=== PATIENT | male | born 1980 | race Caucasian/White ===

== ENCOUNTER 2021-04-11 06:57 | Outpatient (REF) | payer BC, SELFPAY ==
[2021-04-11 11:24] LABS: Hematocrit 49.9 % (42.0-52.0); Hemoglobin 16.2 g/dl (14.0-18.0); Mean Corpuscular HGB Conc 32.5 g/dl (31.0-36.0); Mean Corpuscular Volume 86.3 fL (80.0-98.0); Mean Platelet Volume 10.6 fL (9.4-12.4); Platelet Count 192 X10*3/uL (160-400); Red Blood Count 5.78 X10*6/uL (4.60-5.80); Red Cell Distribution Width 12.6 % (11.0-16.0); White Blood Count 4.8 X10*3/uL (4.8-10.8)
[2021-04-11 11:42] LABS: Appearance Urine CLEAR; Color Urine YELLOW; Glucose Urine UA NEG (NEG); Leukocyte Esterase Urine NEG (NEG); Nitrite Urine NEG (NEG); PH 7.5 (5.0-8.0); Specific Gravity - Urine 1.015 (1.005-1.025); Urine Blood NEG (NEG); Urine Ketones NEG (NEG); Urine Protein NEG (NEG-TRACE)
[2021-04-11 12:01] LABS: Alanine Aminotransferase 29 U/L (0-40); Albumin Level 4.3 g/dL (3.5-5.0); Alkaline Phosphatase 58 U/L (39-117); Anion Gap 11 (12-20); Aspartate Amino Transferase 22 U/L (5-37); Bilirubin Total 1.7 mg/dL (0.0-1.0); Blood Urea Nitrogen 14 mg/dL (9-16); Calcium 9.4 mg/dL (8.4-10.2); Carbon Dioxide 27 mmol/L (22-29); Chloride 106 mmol/L (96-108); Cholesterol 190 mg/dL; Estimated Glomerular Filt Rate > 60; Glucose Fasting 106 mg/dL (60-99); HDL Cholesterol 42 mg/dL; LDL Cholesterol Calculated 135 mg/dl; Potassium 4.4 mmol/L (3.3-5.1); Sodium 140 mmol/L (135-145); TSH reflex Free T4 3.19 uIU/mL (0.32-4.0); Total Protein 7.2 g/dL (6.5-8.0); Triglycerides 68 mg/dL
[2021-04-11 12:21] LABS: RBC Urine 0 /HPF (0); WBC Urine 0 /HPF (0-4)
== END 2021-04-11 06:58 | disposition home or self-care (01) ==
LOC: HO.HMGCLDS 06:57
PROVIDERS: Visit Provider Internal Medicine
DX: Z00.00 Encounter for general adult medical examination without abnormal findings (principal); I10 Essential (primary) hypertension; I48.91 Unspecified atrial fibrillation
CPT/HCPCS: 36415; 80053; 80061; 81001; 84443; 85027

== ENCOUNTER → 2021-07-17 14:43 | Outpatient (REF) | payer BC, SELFPAY ==
--- NOTE | 2021-07-17 14:53 | HM_ITS ---
* Total monitoring time 3 days and 10 hours. * Underlying rhythm is sinus. Average rate 70/Min. Range 43 to 144/Min. * Rare supraventricular and ventricular ectopy with minimal burden. * No patient events. MTDD
--- NOTE | 2021-07-17 14:53 | CA_ITS ---
Transthoracic Echocardiogram Patient (Last, First, Middle): Taiwo Olvera, Gender: Male Date of : 1980 Age: 41 Procedure Date: 07/17/2021 Procedure Type: Transthoracic Echocardiogram Location: OP Height: 182.88 cm Weight: 89.36 kg BSA: 2.12 m2 Heart Rate: bpm BP: 110 / 80 mmHg Bulk Delivery Driver: TO Referring MD: Albertina Petit MD Symptoms: I10 - Essential (primary) hypertension Study Quality: Good ECG Rhythm: Sinus Conclusions: - The left ventricular systolic function is normal. The calculated ejection fraction is 59% by biplane method. - No obvious valvular pathology seen on this study. Findings Left Ventricle Normal left ventricular cavity size. There is normal left ventricular wall thickness. The left ventricular systolic function is normal. The calculated ejection fraction is 59% by biplane method. There is no evidence of regional wall motion abnormalities. Diastolic function is normal for age. Right Ventricle Normal right ventricular cavity size and systolic function. Atria Both atria are normal in size. Aortic Valve There is a normal trileaflet aortic valve. There is no aortic valve stenosis. There is no aortic valve regurgitation. Mitral Valve The mitral valve appears normal. There is trace mitral valve regurgitation. There is no mitral valve stenosis. Pulmonic Valve The pulmonic valve is likely normal. Tricuspid Valve There is trace tricuspid valve regurgitation. The pulmonary artery systolic pressure is normal. Great Vessels The aortic annulus, sinuses of valsalva, and asc aorta are normal in size. Venous The inferior vena cava is normal in size and collapses greater than 50% with inspiration. Pericardium/Pleural There is no evidence of pericardial effusion. Prior Study Comparison No prior study available for comparison. Recommendations, Care & Conclusions No obvious valvular pathology seen on this study. Measurements 2D Linear Measurements IVSd: 0.91 0.6-0.9/0.6-1.0 cm LVIDd: 5.06 3.9-5.3/4.2-5.9 cm LVIDd Index: 2.39 2.4-3.2/2.2-3.1 cm/m2 LVIDs: 3.24 2.0-3.6 cm LVPWd: 1.00 0.7-1.1 cm LA Diam: 4.20 2.7-3.8/3.0-4.0 cm LAIDs Index: 1.98 1.5-2.3 cm/m2 LV Mass: 216.96 67-162/88-224 g LV Mass Index: 102.34 43-95/49-115 g/m2 LVOT Diam: 2.10 3.0+(-)1.3 cm 2D Systolic Function EF 4C: 60.80 >55% EF 2C: 55.50 >55% EF BiP: 59.30 >55% Mitral Valve MV Pk E: 0.68 MV PK A: 0.46 MV Decel Time: 180.00 E/A: 1.50 E'Lateral: 16.80 E'Medial: 10.70 E/E' Med: 6.40 E/E' Lat: 4.10 PHT: 53.00 MVA PHT: 4.15 Decel [place]: 3.79 Aortic Valve AoV Pk Manuel: 1.62 AoV Mn Manuel: 1.14 AoV VTI: 0.34 AoV Pk Grad: 10.00 Aov Mn Grad: 6.00 WAYLON Cont.VTI: 2.08 LVOT LVOT Pk Manuel: 1.02 LVOT Mn Manuel: 0.68 LVOT VTI: 0.20 LVOT Pk Grad: 4.00 LVOT Mn Grad: 2.00 LVOT Diam: 2.10 LVOT Area: 3.46 Diastolic Function MV Pk E: 0.68 MV Pk A: 0.46 E/A: 1.50 E'Medial: 10.70 E/E' Med: 6.40 E' Laterial: 16.80 E/E' Lat: 4.10 Right Ventricle TAPSE (mm): 24.30 TVS' Manuel: 11.70 Tricuspid Valve TR Pk Manuel: 2.05 TR Pk Grad: 17.00 RA Press: 3.00 RVSP: 20.00 Great Vessels Aorta Sinus of Valsalva: 3.25 2.0-3.[address] [place]: 2.66 1.7-3.4 cm Ao Asc: 3.20 2.1-3.4 cm Ao Arch: 2.90 Updated in Other Vendor System with Status of Final Anthony Minaya MD electronically signed on 07/19/2021 10:35:26 AM with status of Final
== END ==
LOC: HO.CARD 14:43
PROVIDERS: PCP Internal Medicine; Visit Provider Internal Medicine
DX: I10 Essential (primary) hypertension (principal); I48.91 Unspecified atrial fibrillation
CPT/HCPCS: 93242; 93306

== ENCOUNTER 2021-12-08 | Outpatient (REF) | payer OTHER, SELFPAY | END 2021-12-08 00:01 | disposition home or self-care (01) | LOC: HO.LNP | PROVIDERS: Visit Provider Internal Medicine | DX: R10.9 Unspecified abdominal pain (principal); K21.9 Gastro-esophageal reflux disease without esophagitis | CPT/HCPCS: 87338 ==

== ENCOUNTER 2021-12-09 14:53 | Outpatient (REF) | payer OTHER, SELFPAY ==
[2021-12-09 16:25] LABS: MANUAL DIFF FLAG NO
[2021-12-09 16:35] LABS: Basophils Percent Auto 0.3 % (0-2); Eosinophils Percent Auto 0.3 % (0-4); Hematocrit 43.8 % (42.0-52.0); Hemoglobin 14.8 g/dl (14.0-18.0); Imm Gran Abs Auto 0.01 X10*3/uL (0.00-0.03); Imm Gran Pct Auto 0.3 % (0.0-0.4); Lymphocytes Absolute Auto 1.8 X10*3/uL (1.2-4.9); Lymphocytes Percent Auto 46.2 % (20-40); Mean Corpuscular HGB Conc 33.8 g/dl (31.0-36.0); Mean Corpuscular Hemoglobin 28.2 pg (27.0-33.0); Mean Corpuscular Volume 83.4 fL (80.0-98.0); Mean Platelet Volume 10.6 fL (9.4-12.4); Monocytes Absolute Auto 0.4 X10*3/uL (0.1-1.2); Monocytes Percent Auto 9.5 % (2-11); Neutrophils Absolute Auto 1.7 x10*3/uL (2.0-8.3); Neutrophils Percent Auto 43.4 % (45-73); Platelet Count 121 X10*3/uL (160-400); Red Blood Count 5.25 X10*6/uL (4.60-5.80); Red Cell Distribution Width 12.4 % (11.0-16.0); White Blood Count 3.9 X10*3/uL (4.8-10.8)
[2021-12-09 16:50] LABS: Alanine Aminotransferase 47 U/L (0-40); Albumin Level 4.4 g/dL (3.5-5.0); Alkaline Phosphatase 58 U/L (39-117); Anion Gap 15 (12-20); Aspartate Amino Transferase 32 U/L (5-37); Bilirubin Total 0.7 mg/dL (0.0-1.0); Blood Urea Nitrogen 19 mg/dL (9-16); Calcium 8.8 mg/dL (8.4-10.2); Carbon Dioxide 25 mmol/L (22-29); Chloride 106 mmol/L (96-108); Estimated Glomerular Filt Rate > 60; Glucose Random 95 mg/dL (60-115); Sodium 142 mmol/L (135-145); Total Protein 7.2 g/dL (6.5-8.0)
[2021-12-09 17:13] LABS: TSH reflex Free T4 2.01 uIU/mL (0.32-4.0)
== END 2021-12-09 14:54 | disposition home or self-care (01) ==
LOC: HO.HMGCLDS 14:53
PROVIDERS: PCP Internal Medicine; Visit Provider Internal Medicine
DX: I10 Essential (primary) hypertension (principal); R10.9 Unspecified abdominal pain; K62.1 Rectal polyp
CPT/HCPCS: 36415; 80053; 84443; 85025

== ENCOUNTER 2021-12-10 06:51 | Outpatient (REF) | payer OTHER, SELFPAY | END 2021-12-10 06:52 | disposition home or self-care (01) | LOC: HO.HMGCLDS 06:51 | PROVIDERS: PCP Internal Medicine; Visit Provider Internal Medicine | DX: Z13.89 Encounter for screening for other disorder (principal) ==

== ENCOUNTER 2022-01-01 08:54 | Outpatient (REF) | payer OTHER, SELFPAY ==
--- NOTE | ~2022-01-01 | US_ITS ---
EXAMINATION: US ABDOMEN COMPLETE CLINICAL INFORMATION: Unspecified abdominal pain. COMPARISON: None TECHNIQUE: Real-time imaging of the abdominal viscera. FINDINGS: PANCREAS: Normal. ABDOMINAL AORTA: The proximal, mid, and distal segments are normal in caliber. INFERIOR VENA CAVA: Visualized portions are normal. LIVER: Normal. The liver is normal in size. The liver contour is normal. Parenchymal echogenicity is normal. No focal hepatic lesion. There is no intrahepatic biliary duct dilatation seen. GALLBLADDER: Gallbladder wall thickness is 0.27 cm. The gallbladder is physiologically distended. Multiple mobile gallstones are present. Borderline gallbladder wall thickening without pericholecystic fluid. COMMON BILE DUCT: Normal in caliber measuring 0.3 cm in diameter. RIGHT KIDNEY: Normal. No hydronephrosis. No renal calculi or focal parenchymal lesions. The kidney measures 11.9 cm in maximum dimension. LEFT KIDNEY: Normal. No hydronephrosis. No renal calculi or focal parenchymal lesions. The kidney measures 10.6 cm in maximum dimension. SPLEEN: Normal. The spleen measures 12.1 cm in maximum dimension. FREE FLUID: None. US/US abdomen complete IMPRESSION: 1. Cholelithiasis with borderline wall thickening measuring 0.27 cm. 2. Rest of the abdominal ultrasound is unremarkable.
== END 2022-01-01 08:55 | disposition home or self-care (01) ==
LOC: HO.HMGCX 08:54
PROVIDERS: PCP Internal Medicine; Visit Provider Internal Medicine
DX: I10 Essential (primary) hypertension (principal); R10.9 Unspecified abdominal pain; K62.1 Rectal polyp
CPT/HCPCS: 76700

== ENCOUNTER 2022-01-21 06:08 | Outpatient (REF) | payer OTHER, SELFPAY ==
[2022-01-21 11:16] LABS: MANUAL DIFF FLAG NO
[2022-01-21 11:32] LABS: Basophils Percent Auto 0.6 % (0-2); Eosinophils Absolute Auto 0.1 X10*3/uL (0.0-0.4); Eosinophils Percent Auto 2.5 % (0-4); Hematocrit 49.7 % (42.0-52.0); Hemoglobin 16.5 g/dl (14.0-18.0); Imm Gran Abs Auto 0.01 X10*3/uL (0.00-0.03); Imm Gran Pct Auto 0.2 % (0.0-0.4); Lymphocytes Absolute Auto 2.8 X10*3/uL (1.2-4.9); Lymphocytes Percent Auto 53.8 % (20-40); Mean Corpuscular HGB Conc 33.2 g/dl (31.0-36.0); Mean Corpuscular Hemoglobin 28.6 pg (27.0-33.0); Mean Corpuscular Volume 86.3 fL (80.0-98.0); Mean Platelet Volume 10.5 fL (9.4-12.4); Monocytes Absolute Auto 0.4 X10*3/uL (0.1-1.2); Monocytes Percent Auto 6.8 % (2-11); Neutrophils Absolute Auto 1.9 x10*3/uL (2.0-8.3); Neutrophils Percent Auto 36.1 % (45-73); Platelet Count 183 X10*3/uL (160-400); Red Blood Count 5.76 X10*6/uL (4.60-5.80); Red Cell Distribution Width 12.7 % (11.0-16.0); White Blood Count 5.2 X10*3/uL (4.8-10.8)
[2022-01-21 11:44] LABS: Alanine Aminotransferase 83 U/L (0-40); Albumin Level 4.6 g/dL (3.5-5.0); Alkaline Phosphatase 73 U/L (39-117); Aspartate Amino Transferase 42 U/L (5-37); Bilirubin Direct 0.4 mg/dL (0.0-0.5); Bilirubin Total 1.5 mg/dL (0.0-1.0); Total Protein 7.6 g/dL (6.5-8.0)
== END 2022-01-21 06:09 | disposition home or self-care (01) ==
LOC: HO.HMGCLDS 06:08
PROVIDERS: PCP Internal Medicine; Visit Provider Internal Medicine
DX: D69.6 Thrombocytopenia, unspecified (principal)
CPT/HCPCS: 36415; 80076; 85025

== ENCOUNTER 2022-04-07 06:06 | Outpatient (REF) | payer OTHER, SELFPAY ==
[2022-04-07 11:27] LABS: MANUAL DIFF FLAG NO
[2022-04-07 11:35] LABS: Basophils Percent Auto 0.4 % (0-2); Eosinophils Absolute Auto 0.1 X10*3/uL (0.0-0.4); Eosinophils Percent Auto 1.9 % (0-4); Hematocrit 49.1 % (42.0-52.0); Hemoglobin 16.2 g/dl (14.0-18.0); Imm Gran Abs Auto 0.01 X10*3/uL (0.00-0.03); Imm Gran Pct Auto 0.2 % (0.0-0.4); Lymphocytes Absolute Auto 2.3 X10*3/uL (1.2-4.9); Lymphocytes Percent Auto 45.6 % (20-40); Mean Corpuscular Hemoglobin 28.5 pg (27.0-33.0); Mean Corpuscular Volume 86.4 fL (80.0-98.0); Mean Platelet Volume 10.6 fL (9.4-12.4); Monocytes Absolute Auto 0.3 X10*3/uL (0.1-1.2); Monocytes Percent Auto 6.4 % (2-11); Neutrophils Absolute Auto 2.3 x10*3/uL (2.0-8.3); Neutrophils Percent Auto 45.5 % (45-73); Platelet Count 171 X10*3/uL (160-400); Red Blood Count 5.68 X10*6/uL (4.60-5.80); Red Cell Distribution Width 12.6 % (11.0-16.0); White Blood Count 5.1 X10*3/uL (4.8-10.8)
[2022-04-07 12:13] LABS: Alanine Aminotransferase 31 U/L (0-40); Albumin Level 4.3 g/dL (3.5-5.0); Alkaline Phosphatase 59 U/L (39-117); Anion Gap 16 (12-20); Aspartate Amino Transferase 23 U/L (5-37); Bilirubin Total 1.4 mg/dL (0.0-1.0); Blood Urea Nitrogen 15 mg/dL (9-16); Calcium 9.4 mg/dL (8.4-10.2); Carbon Dioxide 24 mmol/L (22-29); Chloride 106 mmol/L (96-108); Cholesterol 199 mg/dL; Estimated Glomerular Filt Rate > 60; Glucose Fasting 103 mg/dL (60-99); HDL Cholesterol 48 mg/dL; LDL Cholesterol Calculated 124 mg/dl; Potassium 4.3 mmol/L (3.3-5.1); Sodium 142 mmol/L (135-145); Total Protein 7.1 g/dL (6.5-8.0); Triglycerides 137 mg/dL
[2022-04-08 08:04] LABS: HBS Num1 0.22 mIU/mL (0-7.99); HBc Num1 0.15 S/CO (0.00-0.79); HBsAGNum1 0.26 S/CO (0.00-0.99); Hepatitis B Core Antibody Nonreactive (Nonreactive); Hepatitis B Surface Antigen Negative (Negative); ~HepC Num1 0.14 S/CO (0.00-0.79); ~Hepatitis B Surface Antibody NONREACTIVE (Nonreactive); ~Hepatitis C Antibody Nonreactive (Nonreactive)
== END 2022-04-07 06:07 | disposition home or self-care (01) ==
LOC: HO.HMGCLDS 06:06
PROVIDERS: PCP Internal Medicine; Visit Provider Internal Medicine
DX: Z00.00 Encounter for general adult medical examination without abnormal findings (principal); I48.91 Unspecified atrial fibrillation; R79.89 Other specified abnormal findings of blood chemistry; I10 Essential (primary) hypertension
CPT/HCPCS: 36415; 80053; 80061; 85025; 86704; 86706; 86803; 87340

== ENCOUNTER 2022-12-30 13:50 | Outpatient (AMB) | payer OTHER, SELFPAY ==
--- NOTE | 2022-12-30 13:58 | MHC.PC.OV ---
Vital Signs 12/30/22 13:59 Height 6 ft Weight 187 lb BMI 25.4 BP 120/70 Blood Pressure Location Lt brachial Position Sitting Pulse 65 Pulse Source Pulse Oximeter Pulse Oximetry (%) 98 Oxygen Delivery Method Room Air Intake Visit Reasons: Follow up Intake Note: Pt is here today for a follow up visit. Allergies No Known Allergies Allergy (Verified 12/30/22 14:10) Medication List - Last Reconciled 12/30/22 by Albertina Petit MD metoprolol succinate ER 25 mg PO BID sertraline 25 mg PO DAILY Tobacco use date assessed: 12/30/22 Dental Screening Dental Screen Date: 12/30/22 Did you have a dental visit in the last 12 months?: No Did you have a dental problem in the last 6 months where you did not have access to dental care?: No Was dental information given to patient?: Patient declined HPI Follow up HPI Details Pt presents c/o increased stress, insomnia, anxiety worse for the last 2 months. Pt has been under a lot of stress because separation from his , who has been applying to get permanent residency in [facility] Medical History (Updated 12/30/22 @ 14:54 by Albertina Petit MD) Rectal polyp Abdominal pain Right flank pain HTN (hypertension) A-fib Annual physical exam Surgical History History of hand surgery History of appendectomy Family History Father Hypertension Mother Hypertension Social History Household Members Other:: , no children, works as construction Housing: House Patient Tobacco Use Status: Never used Tobacco e-Cigarette/Vaping Use: Never Used Current occupational status: employed Cognitive needs: No Hearing needs: No Vision needs: No Questionnaire PHQ-9 Over the last 2 weeks, how often have you been bothered by any of the following problems? 1. Little interest or pleasure in doing things: not at all 2. Feeling down, depressed, or hopeless: not at all 3. Trouble falling or staying asleep, or sleeping too much: not at all 4. Feeling tired or having little energy: not at all 5. Poor appetite or overeating: not at all 6. Feeling bad about yourself - or that you are a failure or have let yourself or your family down: not at all 7. Trouble concentrating on things, such as reading the newspaper or watching television: not at all 8. Moving or speaking so slowly that other people could have noticed. Or the opposite - being so fidgety or restless that you have been moving around a lot more than usual: not at all 9. Thoughts that you would be better off or of hurting yourself in some way: not at all Total score: 0 Depression Screening Interpretation: Negative Depression Screening Done: Yes Source: Developed by Drs. Tyron Porter, Magalis Marie, Mason Ochoa and colleagues, with an educational fabi from [employer]. Thrive Questionnaire Date Thrive assessed: 12/30/22 I am a: Patient What is your living situation today?: I have a steady place to live Within the past 12 months, did the food you bought not last and you didn't have the money to get more?: Never true Within the past 12 months, did you worry whether your food would run out before you got money to buy more?: Never true Do you have trouble paying for medicines?: No Do you have trouble getting transportation to medical appointments?: No Do you have trouble paying your heating and electricity bill?: No Do you have trouble taking care of your child, family member or friend?: No Do you have trouble with day-to-day activities such as bathing, preparing meals, shopping, managing finances, etc.?: No Are you currently unemployed and looking for a job?: No Are you interested in more education?: No Please select the resources that you would like help with: None SAEID-7 AMB Questionnaire SAEID-7 Date SAEID - 7 assessed: 12/30/22 Feeling nervous, anxious, or on edge: 0 = Not at all Not being able to stop or control worryin = Not at all Worrying too much about different things: 0 = Not at all Trouble relaxin = Not at all Being so restless that it is hard to sit still: 0 = Not at all Becoming easily annoyed or irritable: 0 = Not at all Feeling afraid as if something awful might happen: 0 = Not at all Total SAEID-7 score (0-4 normal; 5-9 mild; 10-14 moderate; 15-21 severe): 0 Source: Developed by Drs. Tyron Porter, Magalis Marie, aMson Ochoa and colleagues, with an educational fabi from [employer]. Review of Systems Const All systems reviewed & are unremarkable except as noted in HPI and below Reports no additional complaints Eyes Reports no additional complaints ENT Reports no additional complaints Card Reports no additional complaints Resp Reports no additional complaints GI Reports no additional complaints Reports no additional complaints Musc Reports no additional complaints Physical exam (Primary Care) Vital Signs: Last Vital Signs Pulse 65 12/30/22 13:59 BP 120/70 12/30/22 13:59 Pulse Ox 98 12/30/22 13:59 Oxygen Delivery Method Room Air 12/30/22 13:59 BMI result Body Mass Index 25.4 Tobacco/Smoking Status: Tobacco use Status Tobacco use date assessed 12/30/22 12/30/22 14:12 Patient Tobacco Use Status Never used Tobacco 12/30/22 14:12 e-Cigarette/Vaping Use Never Used 12/30/22 13:58 PHQ-9: PHQ-9 Score PHQ-9: Total score 0 12/30/22 14:31 Depression Screening Interpretation: Negative Thrive Assessment: Date of Thrive Assessment Date Thrive assessed 12/30/22 12/30/22 14:16 Const General: no acute distress HENMT Head: Yes normal to inspection Ears: hearing grossly normal bilaterally Neck Neck: Yes supple Resp Effort & Inspection: normal respiratory effort Auscultation: clear to auscultation bilaterally Cardio Rhythm: regular rhythm Heart sounds: S1 normal heart sound present and S2 normal heart sound present GI Inspection: Yes normal to inspection Palpation (GI): Soft to palpation Percussion: Yes normal to percussion Auscultation: normal bowel sounds Assessment and Plan Assessment & Plan (1) IBS (irritable bowel syndrome): Comment: Stool H pylori negative December 2021 Code(s): K58.9 - Irritable bowel syndrome without diarrhea Plan: Continue dicyclomine as needed stress management discussed with the patient. (2) A-fib: Comment: paroxysmal A fib last episode 2019 in [place]. Echo normal and Holter negative 07/20 Code(s): I48.91 - Unspecified atrial fibrillation Plan: Continue metoprolol (3) HTN (hypertension): Code(s): I10 - Essential (primary) hypertension Plan: Continue metoprolol (4) Anxiety: Code(s): F41.9 - Anxiety disorder, unspecified Plan: Start 25 mg of Zoloft, stress management discussed with the patient. He will return for physical in 3 months Medications: New sertraline 25 mg PO DAILY 90 tabs 0RF Refilled metoprolol succinate ER 25 mg PO BID 180 tabs 3RF Coding Level of Care Code Est Pt Level 4 (89208) Diagnoses IBS (irritable bowel syndrome) K58.9 A-fib I48.91 HTN (hypertension) I10 Anxiety F41.9
[2022-12-30 13:59] VITALS: BP 120/70; PULSE 65; O2SAT 98; BMI 25.4
== END 2022-12-30 14:55 | disposition home or self-care (01) ==
LOC: HO.HMGC 13:50
PROVIDERS: PCP Internal Medicine; Visit Provider Internal Medicine
DX: K58.9 Irritable bowel syndrome, unspecified (principal); I48.91 Unspecified atrial fibrillation; I10 Essential (primary) hypertension; F41.9 Anxiety disorder, unspecified
CPT/HCPCS: 99214

== ENCOUNTER 2023-04-13 13:12 | Outpatient (AMB) | payer OTHER, SELFPAY ==
[2023-04-13 13:14] VITALS: BP 120/78; PULSE 68; O2SAT 98; BMI 26.6
--- NOTE | 2023-04-13 13:14 | A.OFFPC_ITS ---
Vital Signs 04/13/23 13:14 Height 6 ft Weight 196 lb BMI 26.6 BP 120/78 Blood Pressure Location Lt brachial Position Sitting Pulse 68 Pulse Source Pulse Oximeter Pulse Oximetry (%) 98 Oxygen Delivery Method Room Air Intake Visit Reasons: Annual PE Intake Note: Pt is here today for PE. Allergies No Known Allergies Allergy (Verified 04/13/23 13:23) Medication List - Last Reconciled 04/13/23 by Albertina Petit MD metoprolol succinate ER 25 mg PO BID sertraline 25 mg PO DAILY Tobacco use date assessed: 04/13/23 Dental Screening Dental Screen Date: 04/13/23 Did you have a dental visit in the last 12 months?: Yes Did you have a dental problem in the last 6 months where you did not have access to dental care?: No Was dental information given to patient?: Patient has dentist HPI Annual PE HPI Details Patient presents for the physical. He denies complaints. He spent 2 months of vacation in [facility] Medical History Rectal polyp Abdominal pain Right flank pain HTN (hypertension) A-fib Annual physical exam Surgical History History of hand surgery History of appendectomy Family History Father Hypertension Mother Hypertension Social History Household Members Other:: , no children, works as construction Housing: House Patient Tobacco Use Status: Never used Tobacco e-Cigarette/Vaping Use: Never Used Current occupational status: employed Cognitive needs: No Hearing needs: No Vision needs: No Questionnaire PHQ-9 Over the last 2 weeks, how often have you been bothered by any of the following problems? 1. Little interest or pleasure in doing things: not at all 2. Feeling down, depressed, or hopeless: not at all 3. Trouble falling or staying asleep, or sleeping too much: not at all 4. Feeling tired or having little energy: not at all 5. Poor appetite or overeating: not at all 6. Feeling bad about yourself - or that you are a failure or have let yourself or your family down: not at all 7. Trouble concentrating on things, such as reading the newspaper or watching television: not at all 8. Moving or speaking so slowly that other people could have noticed. Or the opposite - being so fidgety or restless that you have been moving around a lot more than usual: not at all 9. Thoughts that you would be better off or of hurting yourself in some way: not at all Total score: 0 Depression Screening Interpretation: Negative Depression Screening Done: Yes Source: Developed by Drs. Tyron Porter, Magalis Marie, Mason Ochoa and colleagues, with an educational fabi from [employer]. Thrive Questionnaire Date Thrive assessed: 04/13/23 I am a: Patient What is your living situation today?: I have a steady place to live Within the past 12 months, did the food you bought not last and you didn't have the money to get more?: Never true Within the past 12 months, did you worry whether your food would run out before you got money to buy more?: Never true Do you have trouble paying for medicines?: No Do you have trouble getting transportation to medical appointments?: No Do you have trouble paying your heating and electricity bill?: No Do you have trouble taking care of your child, family member or friend?: No Do you have trouble with day-to-day activities such as bathing, preparing meals, shopping, managing finances, etc.?: No Are you currently unemployed and looking for a job?: No Are you interested in more education?: No Please select the resources that you would like help with: None Currently or been in a relationship where the following occur: no concerns reported THRIVE Score: 0 SAEID-7 AMB Questionnaire SAEID-7 Date SAEID - 7 assessed: 04/13/23 Feeling nervous, anxious, or on edge: 0 = Not at all Not being able to stop or control worryin = Not at all Worrying too much about different things: 0 = Not at all Trouble relaxin = Not at all Being so restless that it is hard to sit still: 0 = Not at all Becoming easily annoyed or irritable: 0 = Not at all Feeling afraid as if something awful might happen: 0 = Not at all Total SAEID-7 score (0-4 normal; 5-9 mild; 10-14 moderate; 15-21 severe): 0 Source: Developed by Drs. Tyron Porter, Magalis Marie, Mason Ochoa and colleagues, with an educational fabi from [employer]. Review of Systems Const All systems reviewed & are unremarkable except as noted in HPI and below Reports no additional complaints Eyes Reports no additional complaints ENT Reports no additional complaints Card Reports no additional complaints Resp Reports no additional complaints GI Reports no additional complaints Reports no additional complaints Physical exam (Primary Care) Vital Signs: Last Vital Signs Pulse 68 04/13/23 13:14 BP 120/78 04/13/23 13:14 Pulse Ox 98 04/13/23 13:14 Oxygen Delivery Method Room Air 04/13/23 13:14 BMI result Body Mass Index 26.6 Tobacco/Smoking Status: Tobacco use Status Tobacco use date assessed 04/13/23 04/13/23 13:25 Patient Tobacco Use Status Never used Tobacco 04/13/23 13:25 e-Cigarette/Vaping Use Never Used 04/13/23 13:15 PHQ-9: PHQ-9 Score PHQ-9: Total score 0 04/13/23 13:57 Depression Screening Interpretation: Negative Thrive Assessment: Date of Thrive Assessment Date Thrive assessed 04/13/23 04/13/23 13:26 Currently or been in a relationship where the following occur: no concerns reported Const General: no acute distress HENMT Head: Yes normal to inspection General nose exam: Normal external nose present Mouth: Normal oral and palatal mucosa present Eyes General: appearance normal, both eyes and all related structures Neck Neck: Yes no lymphadenopathy and Yes supple Resp Effort & Inspection: normal respiratory effort Auscultation: clear to auscultation bilaterally Cardio Rhythm: regular rhythm Heart sounds: S1 normal heart sound present and S2 normal heart sound present GI Inspection: Yes normal to inspection Palpation (GI): Soft to palpation Percussion: Yes normal to percussion Auscultation: normal bowel sounds Assessment and Plan Assessment & Plan (1) IBS (irritable bowel syndrome): Comment: Stool H pylori negative December 2021 Code(s): K58.9 - Irritable bowel syndrome without diarrhea Plan: CONTINUE HIGH-FIBER DIET (2) Rectal polyp: Comment: removed colonoscopy 2014, repeat colonoscopy 2018 in [place] negative Code(s): K62.1 - Rectal polyp Plan: Referred to GI for colonoscopy and possible EGD for history of chronic GERD and IBS (3) HTN (hypertension): Code(s): I10 - Essential (primary) hypertension Plan: Continue metoprolol (4) A-fib: Comment: paroxysmal A fib last episode 2019 in [place]. Echo normal and Holter negative 07/20 Code(s): I48.91 - Unspecified atrial fibrillation Plan: Continue metoprolol, no events of AFib for 4 years, return for physical in 1 year. Orders: Orders Complete Blood Count Auto Diff Today I10 - Essential (primary) hypertension, I48.91 - Unspecified atrial fibrillation UA w Microscopic Today I10 - Essential (primary) hypertension, I48.91 - Unspecified atrial fibrillation Comprehensive [place]. Panel Fast Today I10 - Essential (primary) hypertension, I48.91 - Unspecified atrial fibrillation TSH reflex Free T4 Today I10 - Essential (primary) hypertension, I48.91 - Unspecified atrial fibrillation Lipid Panel Today I10 - Essential (primary) hypertension, I48.91 - Unspecified atrial fibrillation Referrals Gastroenterology Referral I10 - Essential (primary) hypertension, I48.91 - Unspecified atrial fibrillation, K58.9 - Irritable bowel syndrome without diarrhea, K62.1 - Rectal polyp, Z00.00 - Encounter for general adult medical examination without abnormal findings Medications: Changed From metoprolol succinate ER 25 mg PO BID 180 tabs 3RF To metoprolol succinate ER 25 mg PO DAILY 90 tabs 3RF Refilled metoprolol succinate ER 25 mg PO BID 180 tabs 3RF Discontinued sertraline Discontinued Reason: Doctor's Order 25 mg PO DAILY 90 tabs 0RF Coding Level of Care Code Est Pt Prev Care 40-64y(18330) Diagnoses IBS (irritable bowel syndrome) K58.9 Rectal polyp K62.1 HTN (hypertension) I10 A-fib I48.91
== END 2023-04-13 14:11 | disposition home or self-care (01) ==
PROVIDERS: PCP Internal Medicine; Visit Provider Internal Medicine
DX: Z00.00 Encounter for general adult medical examination without abnormal findings (principal); K58.9 Irritable bowel syndrome, unspecified; K62.1 Rectal polyp; I48.91 Unspecified atrial fibrillation; I10 Essential (primary) hypertension
CPT/HCPCS: 99396

== ENCOUNTER 2023-04-23 06:18 | Outpatient (REF) | payer OTHER, SELFPAY ==
[2023-04-23 10:15] LABS: Appearance Urine Clear; Color Urine Yellow; Glucose Urine UA Negative (Negative); Leukocyte Esterase Urine Negative (Negative); Nitrite Urine Negative (Negative); Urine Blood Negative (Negative); Urine Ketones Negative (Negative); Urine Protein Negative (Neg-Trace)
[2023-04-23 10:17] LABS: MANUAL DIFF FLAG NO
[2023-04-23 10:21] LABS: Basophils Percent Auto 0.8 % (0-2); Eosinophils Absolute Auto 0.1 X10*3/uL (0.0-0.4); Eosinophils Percent Auto 2.5 % (0-4); Hematocrit 46.5 % (42.0-52.0); Hemoglobin 15.8 g/dl (14.0-18.0); Imm Gran Abs Auto 0.01 X10*3/uL (0.00-0.03); Imm Gran Pct Auto 0.2 % (0.0-0.4); Lymphocytes Absolute Auto 2.5 X10*3/uL (1.2-4.9); Lymphocytes Percent Auto 51.7 % (20-40); Mean Corpuscular Hemoglobin 28.6 pg (27.0-33.0); Mean Corpuscular Volume 84.2 fL (80.0-98.0); Mean Platelet Volume 10.5 fL (9.4-12.4); Monocytes Absolute Auto 0.3 X10*3/uL (0.1-1.2); Monocytes Percent Auto 5.9 % (2-11); Neutrophils Absolute Auto 1.9 x10*3/uL (2.0-8.3); Neutrophils Percent Auto 38.9 % (45-73); Platelet Count 194 X10*3/uL (160-400); Red Blood Count 5.52 X10*6/uL (4.60-5.80); Red Cell Distribution Width 12.4 % (11.0-16.0); White Blood Count 4.8 X10*3/uL (4.8-10.8)
[2023-04-23 10:24] LABS: Bacteria Urine None Seen (None Seen); Hyaline Casts Urine 0-2 /LPF (0-2); RBC Urine 0-2 /HPF (0-2); Squamous Epithelial Cell Urine 0-2 /HPF (0-2); WBC Urine 0-5 /HPF (0-5)
[2023-04-23 11:13] LABS: Alanine Aminotransferase 27 U/L (0-40); Albumin Level 4.3 g/dL (3.5-5.0); Alkaline Phosphatase 55 U/L (39-117); Anion Gap 14 (12-20); Aspartate Amino Transferase 21 U/L (5-37); Bilirubin Total 1.4 mg/dL (0.0-1.0); Blood Urea Nitrogen 16 mg/dL (9-16); Calcium 9.3 mg/dL (8.4-10.2); Carbon Dioxide 25 mmol/L (22-29); Chloride 108 mmol/L (96-108); Cholesterol 176 mg/dL (<200); Estimated Glomerular Filt Rate > 60; Glucose Fasting 98 mg/dL (60-99); HDL Cholesterol 45 mg/dL (>40); LDL Cholesterol Calculated 118 mg/dL (<100); Potassium 3.8 mmol/L (3.3-5.1); Sodium 143 mmol/L (135-145); Total Protein 7.2 g/dL (6.5-8.0); Triglycerides 66 mg/dL (<150)
[2023-04-23 11:29] LABS: TSH reflex Free T4 2.87 uIU/mL (0.32-4.0)
== END 2023-04-23 06:19 | disposition home or self-care (01) ==
LOC: HO.HMGCLDS 06:18
PROVIDERS: PCP Internal Medicine; Visit Provider Internal Medicine
DX: I10 Essential (primary) hypertension (principal); I48.91 Unspecified atrial fibrillation
CPT/HCPCS: 36415; 80053; 80061; 81001; 84443; 85025

== ENCOUNTER 2023-06-02 11:24 | Outpatient (AMB) | payer OTHER, SELFPAY ==
[2023-06-02 11:26] VITALS: BP 128/80; PULSE 71; O2SAT 97; BMI 26.6
--- NOTE | 2023-06-02 11:26 | MHC.PC.OV ---
Vital Signs 06/02/23 11:26 Height 6 ft Weight 196 lb BMI 26.6 BP 128/80 Blood Pressure Location Lt brachial Position Sitting Pulse 71 Pulse Source Pulse Oximeter Pulse Oximetry (%) 97 Oxygen Delivery Method Room Air Intake Visit Reasons: Fell at work rib pain Allergies No Known Allergies Allergy (Verified 06/02/23 11:27) Medication List - Last Reconciled 06/02/23 by Albertina Petit MD metoprolol succinate ER 25 mg PO DAILY Tobacco use date assessed: 04/13/23 Dental Screening Dental Screen Date: 04/13/23 HPI Fell at work rib pain HPI Details patient slipped, fell of the tub and hit R lower chest against the toilet bowl at work today. He complains of pain in the right lower chest worse with position change and deep breathing. Patient denies head or abdomen injury. [facility] Medical History Rectal polyp Abdominal pain Right flank pain HTN (hypertension) A-fib Annual physical exam Surgical History History of hand surgery History of appendectomy Family History Father Hypertension Mother Hypertension Social History Household Members Other:: , no children, works as construction Housing: House Patient Tobacco Use Status: Never used Tobacco e-Cigarette/Vaping Use: Never Used Current occupational status: employed Cognitive needs: No Hearing needs: No Vision needs: No Questionnaire Thrive Questionnaire Date Thrive assessed: 04/13/23 SAEID-7 AMB Questionnaire SAEID-7 Date SAEID - 7 assessed: 04/13/23 Source: Developed by Drs. Tyron Porter, Magalis Marie, Mason Ochoa and colleagues, with an educational fabi from [employer]. Review of Systems Const All systems reviewed & are unremarkable except as noted in HPI and below ENT Reports no additional complaints Card Reports no additional complaints Resp Reports no additional complaints GI Reports no additional complaints Reports no additional complaints Physical exam (Primary Care) Vital Signs: Last Vital Signs Pulse 71 06/02/23 11:26 BP 128/80 06/02/23 11:26 Pulse Ox 97 06/02/23 11:26 Oxygen Delivery Method Room Air 06/02/23 11:26 BMI result Body Mass Index 26.6 Tobacco/Smoking Status: Tobacco use Status Tobacco use date assessed 04/13/23 06/02/23 11:27 Patient Tobacco Use Status Never used Tobacco 06/02/23 11:27 e-Cigarette/Vaping Use Never Used 06/02/23 11:27 Thrive Assessment: Date of Thrive Assessment Date Thrive assessed 04/13/23 06/02/23 11:27 HENMT Head: Yes normal to inspection Mouth: Normal oral and palatal mucosa present Neck Neck: Yes supple Chest Other: Reproducible tenderness over right lower ribs, no soft tissue swelling Resp Effort & Inspection: normal respiratory effort Auscultation: clear to auscultation bilaterally Cardio Rhythm: regular rhythm Heart sounds: S1 normal heart sound present and S2 normal heart sound present GI Inspection: Yes normal to inspection Palpation (GI): Soft to palpation Percussion: Yes normal to percussion Auscultation: normal bowel sounds Assessment and Plan Assessment & Plan (1) Rib injury: Code(s): S29.9XXA - Unspecified injury of thorax, initial encounter Plan: Check x-rays of chest and right ribs, meloxicam for 2 weeks is prescribed and supportive care discussed with the patient , out of work until June 06 Orders: Orders XR ribs RT min 3V w CXR1V Today S29.9XXA - Unspecified injury of thorax, initial encounter Medications: New meloxicam 15 mg PO DAILY 14 tabs 0RF Coding Level of Care Code Est Pt Level 3 (94712) Diagnoses Rib injury S29.9XXA
== END 2023-06-02 11:46 | disposition home or self-care (01) ==
LOC: HO.HMGC 11:24
PROVIDERS: PCP Internal Medicine; Visit Provider Internal Medicine
DX: S29.9XXA Unspecified injury of thorax, initial encounter (principal)
CPT/HCPCS: 99213

== ENCOUNTER 2023-06-02 11:42 | Outpatient (REF) | payer OTHER, SELFPAY ==
--- NOTE | ~2023-06-02 | XR_ITS ---
EXAMINATION: XR RIBS, RIGHT CLINICAL INFORMATION: Unspecified injury COMPARISON: None available. TECHNIQUE: 3 views of the right ribs were obtained. FINDINGS: Cardiac silhouette is normal in size. The lungs are mildly hypoinflated. There is no lobar consolidation. No pleural effusion or pneumothorax. No displaced right-sided rib fracture identified. XR/XR ribs RT min 3V w CXR1V IMPRESSION: No displaced right-sided rib fracture.
== END 2023-06-02 11:43 | disposition home or self-care (01) ==
LOC: HO.HMGCX 11:42
PROVIDERS: PCP Internal Medicine; Visit Provider Internal Medicine
DX: S29.9XXA Unspecified injury of thorax, initial encounter (principal)
CPT/HCPCS: 71101

== ENCOUNTER 2023-06-16 08:31 | Outpatient (AMB) | payer OTHER, SELFPAY ==
--- NOTE | 2023-06-16 08:44 | A.OFFVIS_ITS ---
Intake Vital Signs 06/16/23 08:51 Height 6 ft Weight 196 lb BMI 26.6 BP 133/57 L Blood Pressure Location Lt brachial Position Sitting Pulse 71 Intake Visit Reasons: colo screen, IBS, possible EGD Intake Note: Patient new consult for pre Colonoscopy/EGD screening, IBS Patient denies any GI issues. Rn Documentation Specialist Required: Yes Accompanied by: Friend Allergies No Known Allergies Allergy (Verified 06/02/23 11:27) HPI colo screen, IBS, possible EGD HPI Details 43 year old? male with last medical hist ory of cholelithiasis, thrombocytopenia, rectal polyp, abdominal pain, ribbon injury is here today for pre colonoscopy screening.? Patient was sent to us by his PCP.? Patient has a history of rectal bleed, previous colonoscopy in 2014 showed 12 mm bleeding rectal polyp. Patient was told to have colonoscopies every 5 years. Patient was in [place] in 2019 where he had colonoscopy done as well and was told that he had no polyps. Patient reports that he will have occasional blood after having bowel movement. Irregular bowels. Sometimes constipation and sometimes loose stools. Patient also reports postprandial abdominal bloating. Denies melena, unintentional weight loss or ribbon like stools.? Patient denies any family history of colorectal cancer. Patient reports postprandial epigastric bloating and epigastric pain. Acid reflux on and off. Currently not on any PPI therapy. PCP tested for H pylori and negative. Denies history of difficulty with sedation or anesthesia in the past.? Negative for history of sleep apnea.? Denies any history of renal, pulmonary, or hepatic disease.??History of elevated liver enzymes and history of thrombocytopenia. Patient had normal platelets in the last year or so. History of PAF in 2019. Recently patient had Holter monitor that did not show any atrial fibrillation. Patient denies any chest pain or shortness of breath with or without activity. 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 No history of infectious? diseases like hepatitis A, B, C, HIV or tuberculosis.? Patient is not on any anticoagulation therapy. [facility] Medical History Rectal polyp Abdominal pain Right flank pain HTN (hypertension) A-fib Annual physical exam Surgical History History of hand surgery History of appendectomy Family History Father Hypertension Mother Hypertension Social History Household Members Other:: , no children, works as construction Housing: House Patient Tobacco Use Status: Never used Tobacco e-Cigarette/Vaping Use: Never Used Current occupational status: employed Cognitive needs: No Hearing needs: No Vision needs: No Review of Systems Const Denies weight gain and Denies weight loss ENT Reports no additional complaints, Denies dysphagia and Denies odynophagia Card Reports no additional complaints Resp Reports no additional complaints GI Reports abdominal pain, Denies belching, Denies melena, Reports bloating, Denies change in bowel habits, Denies dysphagia, Denies excessive flatus, Denies dyspepsia, Reports heartburn (Occasional), Denies diarrhea, Denies loose stools, Denies nausea, Denies odynophagia and Denies vomiting Reports no additional complaints Musc Reports no additional complaints Neuro Reports no additional complaints Psych Reports no additional complaints Endo Reports no additional complaints Physical Exam Vital Signs: Last Vital Signs Pulse 71 06/16/23 08:51 BP 133/57 L 06/16/23 08:51 BMI result Body Mass Index 26.6 Const General: healthy appearing, no acute distress and well developed Nutritional Appearance: well nourished Orientation/consciousness: patient oriented x3 Resp Effort & Inspection: normal respiratory effort, able to speak in complete sentences, no tracheal deviation and symmetric chest movement Auscultation: clear to auscultation bilaterally Cardio Rate: regular rate GI Inspection: Yes normal to inspection and No distended Palpation (GI): Soft to palpation, not firm, nontender and No hepatosplenomegaly present Auscultation: normal bowel sounds General: Yes no CVA tenderness Back/Spine/Pelvis Back: no CVA tenderness Skin General skin exam: elasticity normal, turgor normal and dry skin Neuro General: patient oriented x3 Psych Appearance: grossly normal Mental Status: mental status grossly normal Assessment & Plan Assessment & Plan (1) Rectal polyp: Code(s): K62.1 - Rectal polyp (2) Abdominal pain: Code(s): R10.9 - Unspecified abdominal pain Qualifiers: Abdominal location: epigastric Qualified Code(s): R10.13 - Epigastric pain (3) Postprandial epigastric pain: Code(s): R10.13 - Epigastric pain (4) GERD (gastroesophageal reflux disease): Code(s): K21.9 - Gastro-esophageal reflux disease without esophagitis Qualifiers: Esophagitis presence: esophagitis presence not specified Qualified Code(s): K21.9 - Gastro-esophageal reflux disease without esophagitis (5) Screen for colon cancer: Code(s): Z12.11 - Encounter for screening for malignant neoplasm of colon (6) IBS (irritable bowel syndrome): Code(s): K58.9 - Irritable bowel syndrome without diarrhea Qualifiers: Irritable bowel syndrome type: with both diarrhea and constipation Qualified Code(s): K58.2 - Mixed irritable bowel syndrome Plan Patient denies any cardiac or respiratory symptoms. ?Denies any issues with anesthesia in the past.? Denies any history of sleep apnea.? No history infectious diseases in the past or present.? Not on any anticoagulation therapy.? Personal history of rectal polyps, occasional blood after bowel movements. Was told that he has hemorrhoids.? Patient denies melena, unintentional weight loss or ribbon like stools. Patient will be sent for upper endoscopy. We will hold off on giving him any PPI at this time. Patient will try to avoid dietary triggers and late night snacking. Staying upright for minimum 3 hours after meals discussed with patient. Low FODMAP diet discussed with patient as well. List of food recommended as well as l ist of food to avoid given to patient in Greek.? Discussed at length the pre-procedure,? prep, diet & medications as well as what to expect prior, during and after the procedure.?? Stressed the importance of good bowel prep. ?Recommended the use of Vaseline or Calmoseptine OTC & baby wipes with bowel movements to promote comfort.? ?Patient verbalizes understanding and agrees to plan of care.? He was given the opportunity to ask questions and all questions answered.? We will see him after the procedure.? Orders: Orders Vitamin D 25-OH (D2 and D3) Today E55.9 - Vitamin D deficiency, unspecified Vitamin B12 and Folate Today R19.7 - Diarrhea, unspecified Medications: New bisacodyl (Dulcolax (bisacodyl)) take 4 tabs at noon the day before your colonoscopy 20 mg (4 x 5 mg) PO ONCE 1 day 4 tabs 0RF Z12.11 - Encounter for screening for malignant neoplasm of colon polyethylene glycol 3350 (Miralax) As directed by gastroenterology department at [facility] 238 grams PO ONCE 238 grams 0RF Z12.11 - Encounter for screening for malignant neoplasm of colon Coding Level of Care Code New Pt Level 4 (92458) Diagnoses Rectal polyp K62.1 Epigastric pain R10.13 Abdominal location: epigastric Postprandial epigastric pain R10.13 Gastroesophageal reflux disease, unspecified whether esophagitis present K21.9 Esophagitis presence: esophagitis presence not specified Screen for colon cancer Z12.11 Irritable bowel syndrome with both constipation and diarrhea K58.2 Irritable bowel syndrome type: with both diarrhea and constipation Time Spent (min) 45 Comment 30 minutes spent with patient and additional 15 minutes spent reviewing his records
[2023-06-16 08:51] VITALS: BP 133/57; PULSE 71; BMI 26.6
== END 2023-06-16 09:38 | disposition home or self-care (01) ==
PROVIDERS: PCP Internal Medicine; Visit Provider Nurse Practitioner Family
DX: K62.1 Rectal polyp (principal); R10.13 Epigastric pain; K21.9 Gastro-esophageal reflux disease without esophagitis; Z12.11 Encounter for screening for malignant neoplasm of colon; K58.2 Mixed irritable bowel syndrome
CPT/HCPCS: 99204

== ENCOUNTER → 2023-06-16 08:31 | Outpatient (BNVA) | payer OTHER, SELFPAY | PROVIDERS: PCP Internal Medicine; Visit Provider Nurse Practitioner Family ==

== ENCOUNTER 2023-07-21 06:02 | Outpatient (REF) | payer OTHER, SELFPAY ==
[2023-07-21 11:24] LABS: Folate 8.5 ng/mL (> or = 4.0); Vitamin B12 358 pg/mL (200-900)
[2023-07-25 16:09] LABS: Vitamin D 25-OH, D2 <4 ng/mL; Vitamin D 25-OH, D3 41 ng/mL; Vitamin D 25-OH, Total 41 ng/mL (30-100)
== END 2023-07-21 06:03 | disposition home or self-care (01) ==
LOC: HO.HMGCLDS 06:02
PROVIDERS: PCP Internal Medicine; Visit Provider Nurse Practitioner Family
DX: R19.7 Diarrhea, unspecified (principal); E55.9 Vitamin D deficiency, unspecified
CPT/HCPCS: 36415; 82306; 82607; 82746

== ENCOUNTER 2023-10-25 09:49 | Day surgery (SDC) | payer OTHER, SELFPAY ==
--- NOTE | 2023-10-25 08:50 | HO.ANESPROP2 ---
[facility] Active Problems Active Problems: All Active Problems Rib injury (Acute) Anxiety (Acute) IBS (irritable bowel syndrome) (Acute) Elevated LFTs (Acute) Cholelithiasis (Acute) Thrombocytopenia (Acute) Rectal polyp (Acute) Abdominal pain (Acute) Right flank pain (Acute) HTN (hypertension) (Acute) A-fib (Acute) Annual physical exam (Acute) Past Medical History Medical History (Updated 06/16/23 @ 18:34 by Guadalupe Lundberg [facility]) Rectal polyp Abdominal pain Right flank pain HTN (hypertension) A-fib Annual physical exam Family History Family History Father Hypertension Mother Hypertension Family history of problems with anesthesia: No Surgical History Surgical History (Updated 10/25/23 @ 10:40 by Dana Rosa RN) Hx of endoscopy Hx of colonoscopy History of hand surgery History of appendectomy History of Problems with Anesthesia: No Social History Social History Household Members Other:: , no children, works as construction Housing: House Patient Tobacco Use Status: Never used Tobacco e-Cigarette/Vaping Use: Never Used Advance Directives: No Advance Directives Information Provided: Yes Nutrition Risks: No Nutritional Risk Current occupational status: employed Cognitive needs: No Hearing needs: No Vision needs: No Meds Allergies Allergy/AdvReac Type Severity Reaction Status Date / Time No Known Allergies Allergy Verified 06/02/23 11:27 Exam Airway Mallampati Class: II TM Dist: >3cm Neck ROM: Full Heart: rrr Lungs: ca Assessment and Plan Assessment Anesthesia Assessment: Anesthesia Plan Discussed and Chart Reviewed Final Anesthetic Review Family History of Problems with Anesthesia: No History of Problems with Anesthesia: No NPO: Yes ASA Class: II Final Preanesthetic Review: No Changes in Pt Med Stat and Meds/Allgs Chart Reviewed Patient Risk: Low Procedure Risk: Intermediate Anesthetic Plan Anesthetic Plan: MAC: Disposition: Standard PACU
[2023-10-25 10:04] VITALS: BMI 26.9
[2023-10-25 10:15] VITALS: BP 149/92; PULSE 67; RESP 18; TEMP 36.9; O2SAT 98
[2023-10-25] MEDS: Lactated Ringers 1,000 ML 50 ML IVCONT (10:33)
--- NOTE | 2023-10-25 11:32 | MHC.SHP ---
Pre-Procedural Eval Section A - 24 Hr Update-Section A only Date of Service: 10/25/23 The patient is an INPATIENT: No The patient has been examined within 24 hours of the surgical procedure. The History & Physical has been completed within 30 days and I have reviewed it.: No Section B - Complete if H&P > 30 days Chief Complaint: Surveillance for colon polyps, epigastric pain Relevant Family History (Specify if Yes): No Relevant Social History: None Present Medications: see Short Stay Collaborative assessment Medical History: Significant History (Rectal polyp Abdominal pain Right flank pain HTN (hypertension) A-fib) History of Previous Operations: Relevant previous surgery/procedure and date(s) (History of hand surgery History of appendectomy) Allergies: Allergies Allergy/AdvReac Type Severity Reaction Status Date / Time No Known Allergies Allergy Verified 06/02/23 11:27 Review of Systems Sugical H&P ROS: Negative: Constitution, Cardiovascular, Respiratory and Gastrointestinal Exam Surgical H&P Exam: Normal: Heart, Normal: Lungs, Normal: Extremities and Normal: Abdomen Plan Diagnosis/Plan: Unchanged I have reviewed the history and physical and performed a pertinent physical examination on my patient. No changes have occurred unless specified. Time Spent With Patient Time: Total time managing care of this patient today ____ minutes.
--- NOTE | 2023-10-25 11:51 | HO.OPN-COLON ---
Colonoscopy Operative Note Operative Note Date of Service: 10/25/23 Narrative: FLEXIBLE TRANSORAL UPPER GASTROINTESTINAL ENDOSCOPY WITH BIOPSIES AND COLONOSCOPY TILL CECUM WITH BIOPSIES, SNARE POLYPECTOMY AND SUBMUCOSAL INJECTION Pre-op diagnosis: Colon cancer screening, GERD Post-op diagnosis: Gastritis, Colon Polyps, Diverticulosis, hemorrhoids Endoscopist:? Nurys Elaine MD Anesthesia:?MAC UPPER ENDOSCOPY Consent: Indications for the procedure and potential complications of bleeding, perforation, reaction to medications and missed diagnosis were discussed with the patient and informed consent was obtained. Instrument: Olympus GIF H 190 mid size upper endoscope Monitoring: Vital signs and clinical assessment, continuous EKG monitoring, Pulse oximetry, Carbon Dioxide monitoring and blood pressure monitoring were done throughout the procedure. Procedure: The patient was placed in the left lateral decubitis position and pre-procedure medications were administered and a bite block was placed. The endoscope was inserted into the mouth and advanced under direct vision to the third part of duodenum. A careful inspection was made as the upper endoscope was withdrawn including a retroflexed examination of the proximal stomach; Findings and interventions are described below. Findings: Larynx: Normal Esophagus: GE junction at 40 cms. No esophagitis or Do's. Stomach: Mild diffuse gastric erythema - biopsies were obtained from the antrum. Grade 2 flap valve on retroflexed examination of the cardia. Duodenum: Normal bulb and descending duodenum Biopsies were obtained from descending duodenum to check for celiac sprue Intervention: Biopsies as noted above COLONOSCOPY PROCEDURE NOTE Instrument: Olympus CF H 190 L variable stiffness adult colonoscope Monitoring: Vital signs and clinical assessment, intermittent blood pressure monitoring, continuous EKG monitoring, Pulse oximetry and Carbon Dioxide monitoring were done throughout the procedure. Please see anesthesia flowsheet. Colon withdrawl time was 29 minutes. Procedure: The patient was placed in the left lateral decubitis position and pre-procedure medications were administered. After a digital rectal examination of the ano-rectum, the video colonoscope was inserted into the rectum and advanced through the colon to the cecum. The colonoscope was slowly withdrawn in a retrograde panoramic fashion and the colon mucosa was carefully examined including a retroflexed view of the rectum. Findings and interventions are described below. Procedure Difficulty: without difficulty Findings: Terminal Ileum: Not evaluated Cecum: Normal Ascending Colon: Normal Transverse Colon: Normal Descending Colon: Normal Sigmoid Colon: Normal Rectum: A 10-12 mm sessile polyp at 3 cms from the anal verge behind a fold. Polyp was raised with 3 cc of [place] and removed piecemeal with a stiff hot snare and a cold biopsy. Polypectomy site was treated with cautery using the snare tip and marked by scarlett ink Ano-rectum: Moderate internal hemorrhoids Colon preparation: Excellent, after some irrigation. [place] Bowel Preparation Scale Right colon; 3 Transverse colon: 3 Left colon; 3 (0 = Unprepared colon segment with mucosa not seen due to solid stool that cannot be cleared. 1 = Portion of mucosa of the colon segment seen, but other areas of the colon segment not well seen due to staining, residual stool and/or opaque liquid. 2 = Minor amount of residual staining, small fragments of stool and/or opaque liquid, but mucosa of colon segment seen well. 3 = Entire mucosa of colon segment seen well with no residual staining, small fragments of stool or opaque liquid) Impression and Post Procedure Diagnosis: Endoscopy Findings: STOMACH: Diffuse gastritis DUODENUM: Normal - biopsied to check for celiac sprue Colonoscopy Findings: One medium sized polyp was removed - likely recurrent polyp or post polypectomy changes since pt has a hx of an ulcerated rectal polyp removed in the past. (Inflammatory polyp on biopsies) Moderate hemorrhoids on retroflexed exam. Plan: Pt has a FU appointment on 11/17/23 with Kristin Lundberg, [employer] Can consider starting pt on famotidine prn for GERD and gastritis. Repeat colonoscopy in 5 years due to hx of adenomatous colon polyps. Above findings were reviewed with the patient and relevant handouts were given and the discharge area. BIOPSIES SHOWED: A. Small bowel, biopsy: Small intestinal mucosa within normal limits; negative for celiac disease. B. Stomach, antrum, biopsy: Antral-type mucosa with mild chronic inactive inflammation; no Helicobacter organisms seen. C. Stomach, body, biopsy: Antral-type and oxyntic mucosa with mild chronic inactive inflammation; no Helicobacter organisms seen. D. Rectum, polypectomy: Inflammatory polyp with hyperplastic changes; granulation tissue Letter sent advising repeat colonoscopy in 5 years
[2023-10-25 12:33] VITALS: BP 110/62; PULSE 57; RESP 16; TEMP 36.3; O2SAT 98
[2023-10-25 12:48] VITALS: BP 113/74; PULSE 56; RESP 18; TEMP 36.6; O2SAT 99
== END 2023-10-25 13:36 | disposition home or self-care (01) ==
PROVIDERS: PCP Internal Medicine; Visit Provider Internal Medicine Gastroenterology
PROC: (CPT 45385; principal; 2023-10-25 11:10)
DX: Z12.11 Encounter for screening for malignant neoplasm of colon (principal); Z86.010 Personal history of colon polyps; K62.1 Rectal polyp; K57.30 Diverticulosis of large intestine without perforation or abscess without bleeding; K64.8 Other hemorrhoids; K58.2 Mixed irritable bowel syndrome; R10.13 Epigastric pain; K29.50 Unspecified chronic gastritis without bleeding; K21.9 Gastro-esophageal reflux disease without esophagitis; I10 Essential (primary) hypertension; I48.91 Unspecified atrial fibrillation
CPT/HCPCS: 45385; 45380; 45381; 43239; 88305; 88313; 88342; J2704

== ENCOUNTER → 2023-10-25 09:49 | Outpatient (BNV) | payer OTHER, SELFPAY | PROVIDERS: PCP Internal Medicine; Visit Provider Internal Medicine Gastroenterology | DX: Z12.11 Encounter for screening for malignant neoplasm of colon (principal); K63.5 Polyp of colon; K57.90 Diverticulosis of intestine, part unspecified, without perforation or abscess without bleeding; K64.8 Other hemorrhoids; K29.70 Gastritis, unspecified, without bleeding; K31.89 Other diseases of stomach and duodenum | CPT/HCPCS: 43239; 45381; 45385 ==

== ENCOUNTER 2024-09-07 13:36 | Outpatient (AMB) | payer BC, SELFPAY ==
[2024-09-07 13:41] VITALS: BP 120/80; PULSE 65; RESP 18; TEMP 36.9; O2SAT 96; BMI 25.8
--- NOTE | 2024-09-07 13:41 | A.OFFPC_ITS ---
Vital Signs 09/07/24 13:41 Height 6 ft Weight 190 lb BMI 25.8 BP 120/80 Blood Pressure Location Lt brachial Position Sitting Respiration 18 Pulse 65 Pulse Source Pulse Oximeter Temp 98.4 F Temp Source Oral Pulse Oximetry (%) 96 Oxygen Delivery Method Room Air Intake Visit Reasons: PE Intake Note: Pt is here today for PE. Allergies No Known Allergies Allergy (Verified 09/07/24 14:04) Medication List - Last Reconciled 09/07/24 by Albertina Petit MD metoprolol succinate ER 25 mg PO DAILY Tobacco use date assessed: 09/07/24 Dental Screening Dental Screen Date: 09/07/24 Did you have a dental visit in the last 12 months?: Yes Did you have a dental problem in the last 6 months where you did not have access to dental care?: No Was dental information given to patient?: Patient has dentist HPI PE HPI Details Patient presents for a physical [facility] Medical History (Updated 09/07/24 @ 14:40 by Albertina Petit MD) Rectal polyp Abdominal pain Right flank pain HTN (hypertension) A-fib Annual physical exam Surgical History (Updated 09/07/24 @ 14:40 by Albertina Petit MD) Hx of endoscopy Hx of colonoscopy History of hand surgery History of appendectomy Family History Father Hypertension Mother Hypertension Social History Household Members Other:: , no children, works as construction Housing: House Patient Tobacco Use Status: Never used Tobacco e-Cigarette/Vaping Use: Never Used service: No Current occupational status: employed Cognitive needs: No Hearing needs: No Vision needs: No Questionnaire PHQ-9 Over the last 2 weeks, how often have you been bothered by any of the following problems? 1. Little interest or pleasure in doing things: not at all 2. Feeling down, depressed, or hopeless: not at all 3. Trouble falling or staying asleep, or sleeping too much: not at all 4. Feeling tired or having little energy: not at all 5. Poor appetite or overeating: not at all 6. Feeling bad about yourself - or that you are a failure or have let yourself or your family down: not at all 7. Trouble concentrating on things, such as reading the newspaper or watching television: not at all 8. Moving or speaking so slowly that other people could have noticed. Or the o pposite - being so fidgety or restless that you have been moving around a lot more than usual: not at all 9. Thoughts that you would be better off or of hurting yourself in some way: not at all Total score: 0 Depression Screening Interpretation: Negative Depression Screening Done: Yes 75232 - PHQ-9 Billing: Yes Source: Developed by Drs. Tyron Porter, Magalis Marie, Mason Ochoa and colleagues, with an educational fabi from [employer]. Thrive Questionnaire Date Thrive assessed: 09/07/24 I am a: Patient What is your living situation today?: I have a steady place to live Within the past 12 months, did the food you bought not last and you didn't have the money to get more?: Never true Within the past 12 months, did you worry whether your food would run out before you got money to buy more?: Never true Do you have trouble paying for medicines?: No Do you have trouble getting transportation to medical appointments?: No Do you have trouble paying your heating and electricity bill?: No Do you have trouble taking care of your child, family member or friend?: No Do you have trouble with day-to-day activities such as bathing, preparing meals, shopping, managing finances, etc.?: No Are you currently unemployed and looking for a job?: No Are you interested in more education?: No Please select the resources that you would like help with: None Currently or been in a relationship where the following occur: No concerns reported THRIVE Score: 0 AUDIT C Alcohol Use Questionnaire (AUDIT-C) 1. How often do you have a drink containing alcohol?: Monthly or less 2. How many drinks containing alcohol do you have on a typical day when you are drinking?: 1 or 2 3. How often do you have six or more drinks on one occasion?: Never Total Score: 1 SAEID-7 AMB Questionnaire SAEID-7 Date SAEID - 7 assessed: 09/07/24 Feeling nervous, anxious, or on edge: 0 = Not at all Not being able to stop or control worryin = Not at all Worrying too much about different things: 0 = Not at all Trouble relaxin = Not at all Being so restless that it is hard to sit still: 0 = Not at all Becoming easily annoyed or irritable: 0 = Not at all Feeling afraid as if something awful might happen: 0 = Not at all Total SAEID-7 score (0-4 normal; 5-9 mild; 10-14 moderate; 15-21 severe): 0 Source: Developed by Drs. Tyron Porter, Magalis Marie, Mason Ochoa and colleagues, with an educational fabi from [employer]. SAEID-7 Assessment Billing SAEID-7 Assessment Tool: SAEID-7 Assessment 85844 Review of Systems Const All systems reviewed & are unremarkable except as noted in HPI and below Eyes Reports no additional complaints ENT Reports no additional complaints Card Reports no additional complaints Resp Reports no additional complaints GI Reports no additional complaints Reports no additional complaints Physical exam (Primary Care) Vital Signs: Last Vital Signs Temp 98.4 F 09/07/24 13:41 Pulse 65 09/07/24 13:41 Resp 18 09/07/24 13:41 BP 120/80 09/07/24 13:41 Pulse Ox 96 09/07/24 13:41 Oxygen Delivery Method Room Air 09/07/24 13:41 BMI result Body Mass Index 25.8 Tobacco/Smoking Status: Tobacco use Status Tobacco use date assessed 09/07/24 09/07/24 14:05 Patient Tobacco Use Status Never used Tobacco 09/07/24 14:05 e-Cigarette/Vaping Use Never Used 09/07/24 13:41 PHQ-9: PHQ-9 Score PHQ-9: Total score 0 09/07/24 14:05 Depression Screening Interpretation: Negative Thrive Assessment: Date of Thrive Assessment Date Thrive assessed 09/07/24 09/07/24 14:05 Currently or been in a relationship where the following occur: No concerns reported Const General: no acute distress HENMT Head: Yes normal to inspection Face and sinus: Yes normal facial exam Throat: Yes posterior oropharynx normal Eyes General: appearance normal, both eyes and all related structures Neck Neck: Yes no lymphadenopathy and Yes supple Resp Effort & Inspection: normal respiratory effort Auscultation: clear to auscultation bilaterally Cardio Rhythm: regular rhythm Heart sounds: S1 normal heart sound present and S2 normal heart sound present GI Inspection: Yes normal to inspection Palpation (GI): Soft to palpation Percussion: Yes normal to percussion Auscultation: normal bowel sounds Coding Level of Care Code Est Pt Prev Care 40-64y(25761) Diagnoses HTN (hypertension) I10 A-fib I48.91 Annual physical exam Z00.00 Additional Codes SAEID-7 Assessment Billing - SAEID-7 Assessment Tool: SAEID-7 Assessment 49261 ([id number]) PHQ-9 - 44478 - PHQ-9 Billing: Yes ([id number]) Assessment & Plan Assessment & Plan (1) HTN (hypertension): Code(s): I10 - Essential (primary) hypertension Category: Medical Plan: cont Metoprolol (2) A-fib: Comment: paroxysmal A fib last episode 2019 in [place]. Echo normal and Holter negative 07/20, 30 day Holter negative 2022, on low dose Metoprolol Code(s): I48.91 - Unspecified atrial fibrillation Category: Medical Plan: cont Metoprolol (3) Annual physical exam: Code(s): Z00.00 - Encounter for general adult medical examination without abnormal findings Category: Medical Plan: Well-balanced diet regular physical activity discussed with the patient Orders: Orders TSH reflex Free T4 Today I10 - Essential (primary) hypertension, I48.91 - Unspecified atrial fibrillation, Z00.00 - Encounter for general adult medical examination without abnormal findings Complete Blood Count Auto Diff Today I10 - Essential (primary) hypertension, I48.91 - Unspecified atrial fibrillation, Z00.00 - Encounter for general adult medical examination without abnormal findings UA w Microscopic Today I10 - Essential (primary) hypertension, I48.91 - Unspecified atrial fibrillation, Z00.00 - Encounter for general adult medical examination without abnormal findings Comprehensive [place]. Panel Fast Today I10 - Essential (primary) hypertension, I48.91 - Unspecified atrial fibrillation, Z00.00 - Encounter for general adult medical examination without abnormal findings Lipid Panel Today I10 - Essential (primary) hypertension, I48.91 - Unspecified atrial fibrillation, Z00.00 - Encounter for general adult medical examination without abnormal findings Medications: Refilled metoprolol succinate ER 25 mg PO DAILY 90 tabs 3RF
== END 2024-09-07 14:31 | disposition home or self-care (01) ==
LOC: HO.HMCC 13:37
PROVIDERS: PCP Internal Medicine; Visit Provider Internal Medicine
DX: I10 Essential (primary) hypertension (principal); I48.91 Unspecified atrial fibrillation; Z00.00 Encounter for general adult medical examination without abnormal findings

== ENCOUNTER → 2024-09-07 13:36 | Outpatient (BNVA) | payer BC, SELFPAY | PROVIDERS: PCP Internal Medicine; Visit Provider Internal Medicine | DX: Z00.00 Encounter for general adult medical examination without abnormal findings (principal); I10 Essential (primary) hypertension; I48.91 Unspecified atrial fibrillation | CPT/HCPCS: 96127 ==

== ENCOUNTER 2024-09-08 06:05 | Outpatient (REF) | payer BC, SELFPAY ==
[2024-09-08 10:28] LABS: MANUAL DIFF FLAG NO
[2024-09-08 10:37] LABS: Appearance Urine Clear; Glucose Urine UA Negative (Negative); PH 7.0 (5.0-9.0); Specific Gravity - Urine 1.020 (1.005-1.025)
[2024-09-08 10:44] LABS: Hematocrit 49.4 % (42.0-52.0); Hemoglobin 16.4 g/dl (14.0-18.0); Imm Gran Abs Auto 0.01 X10*3/uL (0.00-0.03); Imm Gran Pct Auto 0.2 % (0.0-0.4); Lymphocytes Absolute Auto 2.6 X10*3/uL (1.2-4.9); Mean Corpuscular HGB Conc 33.2 g/dl (31.0-36.0); Mean Corpuscular Hemoglobin 28.6 pg (27.0-33.0); Mean Corpuscular Volume 86.2 fL (80.0-98.0); NRBC Abs Auto 0.000 X10*3/uL (0.0-0.012); NRBC Pct Auto 0.0 /100WBC (0.0-0.2); Platelet Count 188 X10*3/uL (160-400); Red Blood Count 5.73 X10*6/uL (4.60-5.80); White Blood Count 5.4 X10*3/uL (4.8-10.8)
[2024-09-08 10:56] LABS: Alanine Aminotransferase 41 U/L (0-40); Albumin Level 4.4 g/dL (3.5-5.0); Alkaline Phosphatase 56 U/L (39-117); Anion Gap 12 (12-20); Aspartate Amino Transferase 29 U/L (5-37); Blood Urea Nitrogen 20 mg/dL (9-16); Calcium 9.6 mg/dL (8.4-10.2); Carbon Dioxide 28 mmol/L (22-29); Chloride 104 mmol/L (96-108); Cholesterol 199 mg/dL (<200); Estimated Glomerular Filt Rate > 60; HDL Cholesterol 49 mg/dL (>40); Potassium 4.6 mmol/L (3.3-5.1); Sodium 139 mmol/L (135-145); Total Protein 7.3 g/dL (6.5-8.0); Triglycerides 84 mg/dL (<150)
== END 2024-09-08 06:06 | disposition home or self-care (01) ==
LOC: HO.HMGCLDS 06:05
PROVIDERS: PCP Internal Medicine; Visit Provider Internal Medicine
DX: Z00.00 Encounter for general adult medical examination without abnormal findings (principal); I10 Essential (primary) hypertension; I48.91 Unspecified atrial fibrillation
CPT/HCPCS: 36415; 80053; 80061; 81001; 84443; 85025

== ENCOUNTER 2024-09-21 12:53 | Outpatient (AMB) | payer BC, SELFPAY ==
--- NOTE | 2024-09-21 13:01 | A.OFFPC_ITS ---
Vital Signs 09/21/24 13:02 Height 6 ft Weight 190 lb BMI 25.8 BP 120/78 Blood Pressure Location Lt brachial Position Sitting Respiration 18 Pulse 73 Pulse Source Pulse Oximeter Temp 98.7 F Temp Source Oral Pulse Oximetry (%) 100 Oxygen Delivery Method Room Air Intake Visit Reasons: burn R foot Intake Note: Pt is here today for a sick visit. Pt c/o burn spot on the bottom of his R foot. Allergies No Known Allergies Allergy (Verified 09/07/24 14:04) Medication List - Last Reconciled 09/21/24 by Albertina Petit MD metoprolol succinate ER 25 mg PO DAILY Tobacco use date assessed: 09/21/24 Dental Screening Dental Screen Date: 09/07/24 HPI burn R foot HPI Details Patient stepped on the burning piece of wood with a right foot 2 days ago. He complains of pain swelling and blisters on the dorsum of right foot. He has been applying [id number] antibacterial ointment PFSH Medical History (Updated 09/21/24 @ 13:46 by Albertina Petit MD) Rectal polyp Abdominal pain Right flank pain HTN (hypertension) A-fib Annual physical exam Surgical History (Updated 09/07/24 @ 14:40 by Albertina Petit MD) Hx of endoscopy Hx of colonoscopy History of hand surgery History of appendectomy Family History Father Hypertension Mother Hypertension Social History Household Members Other:: , no children, works as construction Housing: House Patient Tobacco Use Status: Never used Tobacco e-Cigarette/Vaping Use: Never Used service: No Current occupational status: employed Cognitive needs: No Hearing needs: No Vision needs: No Questionnaire Thrive Questionnaire Date Thrive assessed: 09/07/24 SAEID-7 AMB Questionnaire SAEID-7 Date SAEID - 7 assessed: 09/07/24 Source: Developed by Drs. Tyron Porter, Magalis Marie, Mason Ochoa and colleagues, with an educational fabi from [employer]. Review of Systems Const All systems reviewed & are unremarkable except as noted in HPI and below ENT Reports no additional complaints Card Reports no additional complaints Resp Reports no additional complaints GI Reports no additional complaints Reports no additional complaints Musc Reports no additional complaints Physical exam (Primary Care) Vital Signs: Last Vital Signs Temp 98.7 F 09/21/24 13:02 Pulse 73 09/21/24 13:02 Resp 18 09/21/24 13:02 BP 120/78 09/21/24 13:02 Pulse Ox 100 09/21/24 13:02 Oxygen Delivery Method Room Air 09/21/24 13:02 BMI result Body Mass Index 25.8 Tobacco/Smoking Status: Tobacco use Status Tobacco use date assessed 09/21/24 09/21/24 13:09 Patient Tobacco Use Status Never used Tobacco 09/21/24 13:09 e-Cigarette/Vaping Use Never Used 09/21/24 13:09 Thrive Assessment: Date of Thrive Assessment Date Thrive assessed 09/07/24 09/21/24 13:09 Const General: no acute distress Resp Auscultation: clear to auscultation bilaterally Cardio Rhythm: regular rhythm Heart sounds: S1 normal heart sound present and S2 normal heart sound present Extrem Other: The blisters on the dorsum of right toes and forefoot no erythema warmth or discharge Coding Level of Care Code Est Pt Level 3 (77032) Diagnoses Burn, foot, second degree T25.229A Assessment & Plan Assessment & Plan (1) Burn, foot, second degree: Code(s): T25.229A - Burn of second degree of unspecified foot, initial encounter Category: Medical Plan: Supportive care discussed with the patient. He was advised to keep area dry and clean, elevate the extremity and stay out of work for 1 week until he is able to wear a shoe.
[2024-09-21 13:02] VITALS: BP 120/78; PULSE 73; RESP 18; TEMP 37.1; O2SAT 100; BMI 25.8
== END 2024-09-21 13:51 | disposition home or self-care (01) ==
LOC: HO.HMCC 12:53
PROVIDERS: PCP Internal Medicine; Visit Provider Internal Medicine
DX: T25.221A Burn of second degree of right foot, initial encounter (principal)

== ENCOUNTER 2024-10-03 11:28 | Outpatient (AMB) | payer BC, SELFPAY ==
[2024-10-03 12:21] VITALS: BP 120/82; PULSE 68; RESP 18; O2SAT 98; BMI 25.8
--- NOTE | 2024-10-03 12:21 | MHC.PC.OV ---
Vital Signs 10/03/24 12:21 Height 6 ft Weight 190 lb BMI 25.8 BP 120/82 Blood Pressure Location Lt brachial Position Sitting Respiration 18 Pulse 68 Pulse Source Pulse Oximeter Pulse Oximetry (%) 98 Oxygen Delivery Method Room Air Intake Visit Reasons: Rash on arms Intake Note: Pt is here today for a sick visit. Pt c/o rash on his arms. Allergies No Known Allergies Allergy (Verified 10/03/24 12:21) Medication List - Last Reconciled 10/03/24 by Albertina Petit MD metoprolol succinate ER 25 mg PO DAILY Tobacco use date assessed: 09/21/24 Dental Screening Dental Screen Date: 09/07/24 HPI Rash on arms HPI Details Patient presents complaining of pruritic rash on torso arms and legs for 5 days. Patient has been using a new body wash and has been using hydrocortisone cream for the itching with temporary relief. PFS Medical History Rectal polyp Abdominal pain Right flank pain HTN (hypertension) A-fib Annual physical exam Surgical History Hx of endoscopy Hx of colonoscopy History of hand surgery History of appendectomy Family History Father Hypertension Mother Hypertension Social History Household Members Other:: , no children, works as construction Housing: House Patient Tobacco Use Status: Never used Tobacco e-Cigarette/Vaping Use: Never Used service: No Current occupational status: employed Cognitive needs: No Hearing needs: No Vision needs: No Questionnaire Thrive Questionnaire Date Thrive assessed: 09/07/24 SAEID-7 AMB Questionnaire SAEID-7 Date SAEID - 7 assessed: 09/07/24 Source: Developed by Drs. Tyron Porter, Magalis Marie, Mason Ochoa and colleagues, with an educational fabi from [employer]. Review of Systems Const All systems reviewed & are unremarkable except as noted in HPI and below Eyes Reports no additional complaints ENT Reports no additional complaints Card Reports no additional complaints Resp Reports no additional complaints GI Reports no additional complaints Reports no additional complaints Physical exam (Primary Care) Vital Signs: Last Vital Signs Pulse 68 10/03/24 12:21 Resp 18 10/03/24 12:21 BP 120/82 10/03/24 12:21 Pulse Ox 98 10/03/24 12:21 Oxygen Delivery Method Room Air 10/03/24 12:21 BMI result Body Mass Index 25.8 Tobacco/Smoking Status: Tobacco use Status Tobacco use date assessed 09/21/24 10/03/24 12:21 Patient Tobacco Use Status Never used Tobacco 10/03/24 12:21 e-Cigarette/Vaping Use Never Used 10/03/24 12:21 Thrive Assessment: Date of Thrive Assessment Date Thrive assessed 09/07/24 10/03/24 12:21 Const General: no acute distress HENMT Face and sinus: Yes normal facial exam Eyes General: appearance normal, both eyes and all related structures Neck Neck: Yes supple Resp Effort & Inspection: normal respiratory effort Auscultation: clear to auscultation bilaterally Cardio Rhythm: regular rhythm Heart sounds: S1 normal heart sound present and S2 normal heart sound present Skin Other: Maculopapular rash on the torso upper legs and arms Coding Level of Care Code Est Pt Level 3 (23473) Diagnoses Contact dermatitis L25.9 Assessment & Plan Assessment & Plan (1) Contact dermatitis: Code(s): L25.9 - Unspecified contact dermatitis, unspecified cause Category: Medical Plan: Patient was advised to stop using the new body wash and replace it with the 1 for sensitive skin without dye or scent, patient was advised to take Zyrtec and Tagamet for 1 week and stopped using hydrocortisone. If the symptoms persist patient will take prednisone taper
== END 2024-10-03 13:04 | disposition home or self-care (01) ==
LOC: HO.HMCC 11:28
PROVIDERS: PCP Internal Medicine; Visit Provider Internal Medicine
DX: L25.9 Unspecified contact dermatitis, unspecified cause (principal)